=== PATIENT | male | born 1995 | race Caucasian/White ===

== ENCOUNTER 2016-11-12 20:16 | Observation (INO) | payer OTHER ==
[~2016-11-12] VITALS: Ht 172.7 cm; Wt 85.7 kg
[2016-11-12 20:52] LABS: HEMATOCRIT 44.8 % (38.0-50.0); MCH 30.8 PG (29.0-34.0); MCHC 35.3 G/DL (30.0-36.0); MCV 87.3 FL (86-99); MEAN PLAT.VOLUME 9.7 uM^3 (9.0-12.4); PLATELET COUNT 196 K/uL (156-360); RBC DIS.WIDTH-CV 11.2 % (11.8-14.6); RBC DIS.WIDTH-SD 35.4 % (39-53); RED BLOOD COUNT 5.13 M/uL (4.00-5.50)
[2016-11-12 21:03] LABS: CHLORIDE 107 mEq/L (99-109); POTASSIUM 4.3 mEq/L (3.7-5.4); SODIUM 143 mEq/L (136-147)
[2016-11-12 21:05] LABS: GLUCOSE 101 mg/dL (70-99)
[2016-11-12 21:06] LABS: ANION GAP 10 MEQ/L (2-14)
[2016-11-12 21:09] LABS: GFR ESTIMATE (CALCULATED) > 59 mL/min/
[2016-11-12 21:10] LABS: UREA NITROGEN (BUN) 13 mg/dL (9-23)
[2016-11-12 21:11] LABS: TROP-I INTERPRETATION NEGATIVE; TROPONIN-I < 0.01 ng/mL (0.0-0.30)
[2016-11-13 02:38] VITALS: BP 131/67
[2016-11-13 03:01] LABS: TROP-I INTERPRETATION NEGATIVE; TROPONIN-I < 0.01 ng/mL (0.0-0.30)
[2016-11-13 09:33] LABS: TROP-I INTERPRETATION NEGATIVE; TROPONIN-I < 0.01 ng/mL (0.0-0.30)
[2016-11-13 12:46] VITALS: BP 133/63
[2016-11-13 13:03] LABS: ADD MIUA? YES; BILIRUBIN NEGATIVE; BLOOD NEGATIVE; COLOR YELLOW ((YELLOW)); GLUCOSE (STRIP) NEGATIVE; KETONES NEGATIVE; LEUKOCYTES TRACE; NITRITE NEGATIVE; PROTEIN (STRIP) NEGATIVE; SPECIFIC GRAVITY 1.035 (1.000-1.030); UROBILINOGEN 0.2 MG/DL (0.2-1.0)
[2016-11-13 14:03] LABS: AMPHETAMINES QUANT VALUE 0 NG/ML; BARBITUATES QUANT VALUE 0 NG/ML; BENZODIAZEPINES QUANT VALUE 0 NG/ML; BENZODIAZEPINES, URINE SCREEN Negative (200 ng/mL); MARIJUANA QUANT VALUE 0 NG/ML; OPIATES QUANTITATIVE VALUE 0 NG/ML; PHENCYCLIDINE QUANT VALUE 0 NG/ML
[2016-11-13 15:20] LABS: BACTERIA NONE SEEN /HPF; EPITHELIAL CELLS RARE /HPF; MUCUS TRACE /LPF; UCUL ADDED? NO; WHITE BLOOD CELLS 15-20 /HPF (0-5)
== END 2016-11-13 14:05 | disposition home or self-care (01) ==
LOC: EME → EDBD 20:16 → EME 20:16 → EDOF 11-13 00:54 → 5WEST 11-13 02:16
PROVIDERS: Hospitalist; Physician Assistant
DX: R55 Syncope and collapse (principal); R91.1 Solitary pulmonary nodule; Z82.49 Family history of ischemic heart disease and other diseases of the circulatory system
CPT/HCPCS: 71020; 71275; 80048; 80306 90; 81003; 84484; 85027; 93005; 93306; G0378; J7030